=== PATIENT | female | born 1950 | race Two or more races ===

== ENCOUNTER 2017-04-12 12:57 | Outpatient (CLI) | payer MEDICARE, OTHER ==
[2017-04-12 13:36] VITALS: BP 148/75
[2017-04-12] MEDS ORDERED: UNOBMED (14:05)
--- NOTE | 2017-04-12 14:09 | GI Initial Consult Note ---
History of Present Illness General Date patient seen: Apr 12, 2017 Time patient seen: 13:59 Referring physician: DENISE Reason for Consultation: EUS for gastric CA Present Illness HPI 66 year old female patient referred by Dr. Song for evaluation of gastric mass at the GE junction via Endoscopic Ultrasound. s/p EGD performed 03/30/17 with findings of gastric mass, see full report in physical chart. She presents today with abdominal pain, appetite loss and weight loss of 20+ pounds in the past 1.5 months. Denies any N/V/D. Home Meds Reported Medications Unable to Obtain Medications (UNABLE TO OBTAIN MEDS) Unknown Strength Ea 04/12/17 Med list reviewed/reconciled: Yes Allergies: Coded Allergies: No Known Allergies (Unverified , 04/12/17) Patient History History Provided By: Patient PMH Narrative HTN Gastric CA DM PSHx Ovarian Cyst Medications >> pt unable to recall medications she takes for DM and HTN Family History Narrative N/A Social History: Denies: alcohol use, drug use, other, smoking Review of Systems All Other Systems: negative except mentioned in HPI Physical Exam Vital Signs Date Time Temp Pulse Resp B/P Pulse Ox O2 Delivery O2 Flow Rate FiO2 04/12/17 13:36 97.5 63 16 148/75 98 Sp02 EP Interpretation: reviewed General Appearance: well appearing, no apparent distress, alert Head: normocephalic EENT: normal ENT inspection Neck: full range of motion, supple Respiratory: normal breath sounds, no respiratory distress Cardiovascular: normal peripheral pulses, normal rate, regular rhythm Gastrointestinal: normal inspection, non tender, soft Genitourinary: no CVA tenderness Musculoskeletal: back normal Neurologic: normal inspection, alert, oriented x3, responsive Psychiatric: normal inspection, judgement/insight normal, memory normal Lymphatic: normal inspection, no adenopathy GI: Plan Problems: (1) Gastric mass (2) Gastric cancer (3) HTN (hypertension) (4) Diabetes mellitus (5) Encounter for diagnostic endoscopy Plan EUS scheduled for 04/17/17. - Prep instructions explained to patient. - NPO @ IN day prior to procedure. Seen with Dr. Kruse. Thank you for referring this patient. Angela Forrester N.P. Apr 12, 2017 14:09
== END 2017-04-12 13:55 | disposition home or self-care (01) ==
LOC: PAN 12:57
DX: C16.9 Malignant neoplasm of stomach, unspecified (principal); I10 Essential (primary) hypertension; E11.9 Type 2 diabetes mellitus without complications; R10.9 Unspecified abdominal pain; R63.4 Abnormal weight loss
CPT/HCPCS: 99201

== ENCOUNTER 2017-04-17 08:43 | Day surgery (SDC) | payer MEDICARE, MEDICAID ==
[2017-04-17] VITALS (10 sets, daily range): BP systolic 130–156; BP diastolic 69–79
[~2017-04-17] VITALS: Ht 149.9 cm; Wt 61.2 kg
--- NOTE | 2017-04-17 07:03 | Anethesia Preoperative Eval ---
Anesthesia Pre-op PMH/ROS General Date of Evaluation: Apr 17, 2017 Time of Evaluation: 06:58 Anesthesiologist: dalia ASA Score: ASA 3 Mallampati Score Class I : Soft palate, uvula, fauces, pillars visible Class II: Soft palate, uvula, fauces visible Class III: Soft palate, base of uvula visible Class IV: Only hard plate visible Surgeon: marcial Diagnosis: gastric mass, gastric cancer Surgical Procedure: eus Anesthesia History: none Social History: smoking - nonsmoker Family History: no anesthesia problems Allergies: Coded Allergies: No Known Allergies (Unverified , 04/12/17) Medications: see eMAR Past Medical History Cardiovascular: Reports: HTN Gastrointestinal/Genitourinary: Reports: other - gastric cancer, gastric mass Neurologic/Psychiatric: Reports: other - etoh Endocrine: Reports: DM Musculoskeletal/Integumentary: Reports: OA Anesthesia Pre-op Phys. Exam Physician Exam Constitutional: NAD Neurologic: CN 2-12 intact Cardiovascular: RRR Respiratory: CTA Gastrointestinal: S/NT/ND Airway Exam Mallampati Score: Class II MO: full Neck: supple TMD: 2fb ROM: full Anesthesia Pre-op A/P Studies Pre-op Studies: EKG - sinus bradycardia lvh Risk Assessment & Plan Assessment: gastric mass, gastric cancer Plan: eus Status Change Before Surgery: No Pre-Antibiotics Drug: RORY Pace Apr 17, 2017 07:03
[~2017-04-17 08:43] MED LIST: AMLODIPINE-BEN1 EAC5 ORAL; CILOSTAZOL100 MG PO; FENOFIBRATE134 M1 ORAL; HYDRALAZINE HCL25 M1 ORAL; IBUPROFEN600 MG ORAL; LORAZEPAM1 MG ORAL; MECLIZINE HCL25 MG ORAL; METFORMIN HCL500 M1 ORAL; METOPROLOL TART50 MG ORAL; SERTRALINE HCL25 MG ORAL; SERTRALINE HCL50 MG ORAL; UNOBMED
[2017-04-17] MEDS ORDERED: Esmolol 100mg/10ml Inj ONE (08:44)
[2017-04-17] MEDS ORDERED: Propofol 10mg/ml 20ml IV ONE (08:44)
[2017-04-17] MEDS ORDERED: Lidocaine 1% MPF 10mg/ml 5ml ONE (08:44)
--- NOTE | 2017-04-17 09:24 | Pre-Procedure Note/Attestation ---
Pre-Procedure Note/Attestation Complete Prior to Procedure Planned Procedure: not applicable Procedure Narrative: egd/eus Indications for Procedure Pre-Operative Diagnosis: esoph cancer Attestation I attest that I discussed the nature of the procedure; its benefits; risks and complications; and alternatives (and the risks and benefits of such alternatives ), prior to the procedure, with the patient (or the patient's legal personnel representative). I attest that, if there was a reasonable possibility of needing a blood transfusion, the patient (or the patient's legal personnel representative) was given the [facility] standardized written summary, pursuant to the Sina Harrison Blood Safety Act ([place] Health and Safety Code # 1645, as amended). I attest that I re-evaluated the patient just prior to the surgery and that there has been no change in the patient's H&P, except as documented below: BIB JUSTIN Apr 17, 2017 09:24
--- NOTE | 2017-04-17 09:24 | Short Stay Surgery H&P ---
History of Present Illness History of Present Illness Chief Complaint see recent consult note HPI Lindsay Valle is a 66 year old female who was admitted on for Gastric Cancer Patient History Allergies: Coded Allergies: No Known Allergies (Unverified , 04/12/17) PAST MEDICAL HISTORY: Past Surgeries: Social History: Medication History Scheduled Amlodipine Besylate/Benazepril 5-40 Mg (Amlodipine-Benazepril 5-40 Mg), 1 CAP ORAL DAILY, (Reported) Cilostazol* (Cilostazol*), 100 MG PO TWICE A DAY, (Reported) Fenofibrate,Micronized (Fenofibrate), 134 MG ORAL DAILY, (Reported) Hydralazine Hcl* (Hydralazine Hcl*), 25 MG ORAL EVERY 8 HOURS, (Reported) Lorazepam* (Lorazepam*), 1 MG ORAL PRN, (Reported) Meclizine Hcl* (Meclizine*), 25 MG ORAL THREE TIMES A DAY, (Reported) Metformin Hcl* (Metformin Hcl*), 500 MG ORAL TWICE A DAY, (Reported) Metoprolol Tartrate* (Metoprolol Tartrate*), 50 MG ORAL EVERY 12 HOURS, ( Reported) Sertraline Hcl* (Sertraline Hcl*), 25 MG ORAL DAILY, (Reported) Sertraline Hcl* (Zoloft*), 50 MG ORAL DAILY, (Reported) Scheduled PRN Ibuprofen* (Motrin*), 800 MG ORAL Q6H PRN for For Pain, (Reported) Physical Exam Vital Signs Last Vital Signs Date Time Temp Pulse Resp B/P Pulse Ox O2 Delivery O2 Flow Rate FiO2 04/17/17 09:06 98.2 59 20 146/79 98 Room Air Plan Attestation Are the patient's medical conditions optimized for surgery? BIB JUSTIN Apr 17, 2017 09:24
[2017-04-17 10:03] LABS: INR 0.9 (0.9-1.1); PROTHROMBIN TIME 9.6 SEC (9.30-11.50)
--- NOTE | 2017-04-17 10:26 | Endoscopy Procedure Note ---
Endoscopy Procedure Note Indication for Procedure: gastric cancer Procedures Performed: EGD, other - EUS Operative Findings/Diagnosis: same Specimen: none Pt Tolerated Procedure Well: Yes Estimated Blood Loss: none Anesthesiologist: sylvie Anesthesia: MAC Implant(s) used?: No 50 yrs or older w/o bx or poly: Not Applicable 10yrs. F/U not recommended: Not Applicable BIB JUSTIN Apr 17, 2017 10:26
--- NOTE | 2017-04-17 10:39 | Immediate Post-Op Evaluation ---
Immediate Post-Op Evalulation Immediate Post-Op Evalulation Procedure: egd/eus Date of Evaluation: Apr 17, 2017 Time of Evaluation: 10:41 IV Fluids: 0.9ns 400ml Blood Products: none Estimated Blood Loss: negligible Blood Pressure Systolic: 143 - 72 Blood Pressure Diastolic: 72 Pulse Rate: 66 Respiratory Rate: 18 O2 Sat by Pulse Oximetry: 100 Temperature (Fahrenheit): 97.0 Pain Score (1-10): 0 Nausea: No Vomiting: No Complications none Patient Status: awake, reacts, patent Hydration Status: adequate Drug: RORY Pace Apr 17, 2017 10:39
[2017-04-17] MEDS ORDERED: Atropine Inj 1mg/10ml Syr IV PRN (10:45)
[2017-04-17] MEDS ORDERED: Midazolam 2mg/2ml Inj IVP PRN (10:45)
[2017-04-17] MEDS ORDERED: Hydromorphone 0.5mg/0.5ml inj IVP PRN (10:45)
[2017-04-17] MEDS ORDERED: DiphenhydrAMINE 50mg/ml Inj IVP PRN (10:45)
--- NOTE | 2017-04-17 11:53 | 48 Hour Post Anesthesia Eval ---
Post Anesthesia Evaluation Procedure: egd/eus Date of Evaluation: Apr 17, 2017 Time of Evaluation: 11:51 Blood Pressure Systolic: 156 0: 78 Pulse Rate: 67 Respiratory Rate: 18 Temperature (Fahrenheit): 98.0 O2 Sat by Pulse Oximetry: 98 Airway: patent Nausea: No Vomiting: No Pain Intensity: 0 Hydration Status: adequate Cardiopulmonary Status: stable Mental Status/LOC: patient returned to baseline Post-Anesthesia Complications: none Follow-up care needed: N/A RORY FISHER Apr 17, 2017 11:53
--- NOTE | 2017-04-17 18:45 | Procedure Note ---
DATE OF PROCEDURE: 04/17/2017 SURGEON: Vu Kruse M.D. CHIEF COMPLAINT: Esophageal/gastric cancer. PROCEDURE: EGD and EUS. ANESTHESIA: Per Lorena Jennings M.D. INSTRUMENT: Olympus adult flexible upper endoscope and EUS scope. REASON FOR PROCEDURE: The procedure, risks, benefits, and possible consequences, including hemorrhage, aspiration, perforation and infection, and alternative treatments, were explained to the patient/legal guardian by Dr. Vu Kruse and the patient/legal guardian understood and accepted these risks. DESCRIPTION OF PROCEDURE: After informed consent was obtained and the patient was adequately sedated, first upper endoscope was advanced from the mouth into the second portion of the duodenum and retroflexion was performed of the stomach. There was thickening of the gastric mucosa in the cardia and also distal esophagus with some nodules in that area most probably the tumor. At this time, the upper endoscope was retrieved and EUS scope was introduced. CT scanning then starting in the distal esophagus showed evidence of a mass invading the wall. The wall was thickened to about 1 cm. 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 This mass mostly contained within the wall, so for the most part, this tumor was T2, but there is one area of very little, may be about 5 mm that the wall breaks and a tumor invading to the fat. There is no obvious peritumoral lymphadenopathy. The tumor is very close to the liver, but there is no obvious breakthrough wall into the liver. The patient tolerated the procedure without any complication. Summary Findings: Gastric mass in the cardia, most probably invading to the gastroesophageal junction with the wall thickening to about 1 cm and 01:43 of the muscularis propria invasion and making this lesion T3N0. This was discussed with Dr. Song, the oncologist and the patient will follow with him for further care. I want to thank, Dr. Song, for this kind referral. Vu Oh Kruse DR: ALE JOB#: [id number] CC: Elieser Song M.D.; Fax#: [phone] ; Fax#: [phone]
== END 2017-04-17 11:50 | disposition home or self-care (01) ==
LOC: GAS 08:43
DX: C16.9 Malignant neoplasm of stomach, unspecified (principal); C16.0 Malignant neoplasm of cardia; E11.9 Type 2 diabetes mellitus without complications; Z79.84 Long term (current) use of oral hypoglycemic drugs; I10 Essential (primary) hypertension; M19.90 Unspecified osteoarthritis, unspecified site; R00.1 Bradycardia, unspecified
CPT/HCPCS: 36415; 43237; 82962; 85610; 85730; 93005; J0360; J2704; 94003; 94150